=== PATIENT | male | born 1985 | race Caucasian/White ===

== ENCOUNTER 2023-08-07 22:52 | Emergency (ER) | payer OTHER, SELFPAY ==
[2023-08-07 22:54] VITALS: BP 159/96; PULSE 84; RESP 16; TEMP 36.8; O2SAT 97; BMI 38.7
--- NOTE | 2023-08-07 23:00 | EDS_ITS ---
HPI History of Present Illness Chief Complaint: Dental Detail of Chief Complaint: Dental pain due to dental abscess Informant: patient Onset/Context/Timing Onset: Days Context: Sudden Onset Timing: Continuous Quality: Pain Location: Tooth #31 Current Severity: Mild Maximum Severity: Moderate Worsened by: Chewing Relieved by: - (Dentist did not prescribe any medication for pain.) Associated Symptoms Assocated Symptom - Dental: jaw swelling; Negative for fever or face swelling Narrative Narrative: Patient is a 38-year-old male. He presents with dental pain. He was seen by dentist today. Was placed on clindamycin because of allergy to amoxicillin. He has no history medic fever, heart murmur mitral valve prolapse. He denies rash. Denies myalgias arthralgias. He denies difficulty swallowing or change in voice. He has no allergies to pain medicine. Prior similar symptoms: No Recent Illness/Hospitalization: Yes PFSH PFSH Home Medications ?Medication ?Instructions ?Recorded ?Last Taken ?Type clindamycin HCl 150 mg capsule 150 mg PO TID 08/07/23 Unknown History hydrocodone-acetaminophen 5-325mg 1 tab PO Q6H PRN PRN Pain 3 days 08/07/23 Unknown Rx 5mg-325mg #10 TABLETS Allergy/AdvReac Type Severity Reaction Status Date / Time amoxicillin Allergy Mild Rash Verified 08/07/23 22:56 Surgical History History of root canal procedure Hx of wisdom tooth extraction Social History Smoking Status: Never smoker ROS ROS ED Constitutional Constitutional ED: Denies chills, fever(s) or subjective Eyes Eyes: Denies blurry vision or change in vision ENT ENT ED: Reports other Details: Dental pain and swelling proximity of tooth #31 ; Denies ear pain, rhinorrhea or sore throat Cardiovascular Cardiovascular: Reports chest pain, palpitations and racing heartbeat Integumentary Reports abscess; Denies rash Neurologic Neurologic: Denies headache(s) EXAM Physical Exam Const Vital Signs: 08/07/23 22:54 08/07/23 23:32 Temperature 98.2 F 98.2 F Temperature Source Temporal Pulse Rate 84 75 Respiratory Rate 16 18 Blood Pressure 159/96 H 132/88 H Blood Pressure Mean 117 102 Pulse Ox 97 96 Oxygen Delivery Method Room Air Positive well nourished and well developed Constitutional Narrative: Patient has swelling of body of the mandible on the right. Patient has poor dentition. General Appearance ED: well developed and NAD HEENT Face and Sinus: Negative for sinuses nontender Mouth ED: Yes oral and palatal mucosa normal, Yes lips normal, Yes tongue normal, Yes salivary gland normal, No mouth trauma and Yes oral and palatal mucosa abnormal Mouth: oral and palatal mucosa normal, lips normal, tongue normal, salivary gland normal, No mouth trauma and oral and palatal mucosa abnormal Teeth and Gingiva: abnormal tooth and associated gingiva and caries Throat: posterior oropharynx normal Eyes PERRL and EOMs intact bilaterally Neck no lymphadenopathy, supple and no JVD Neck Narrative: Trachea midline. No inspiratory stridor. Floor the mouth is not swollen to suggest Ludewig's angina. Resp normal respiratory effort Cardio regular rate, regular rhythm, S1 normal heart sound, S2 normal heart sound and no murmurs Neuro oriented x3 and CN's II-XII intact bilaterally Sensorium / Orientation: alert Psych mental status grossly normal Skin no rashes or lesions noted and no wounds MDM MDM MDM Narrative Medical decision making narrative: Patient has abscess on dental film tooth #31. Will treat with opiate analgesics he has no contraindication and NSAIDs are not helpful. Discharge Plan Triage Chief Complaint: Dental ED Provider: Juan Avalos Dx/Rx/DC Orders Clinical Impression: Abscess, dental Instructions: ED Dental Abscess Prescriptions: New hydrocodone-acetaminophen 5-325 mg tablet 1 tab PO Q6H PRN PRN (Reason: Pain) 3 Days Qty: 10 0RF No Action clindamycin HCl 150 mg capsule 150 mg PO TID Primary Care Provider: Will Jesus Referrals: Dentist,Your [STAFF PHYSICIAN] - Keep Kati appointment Print Language: Luxembourger Disposition Disposition: Home, Self Care Discharge Date/Time: 08/07/23 23:42
[2023-08-07 23:32] VITALS: BP 132/88; PULSE 75; RESP 18; TEMP 36.8; O2SAT 96
== END 2023-08-07 23:42 | disposition home or self-care (01) ==
PROVIDERS: Emergency Provider Emergency Medicine; PCP Family Medicine; Visit Provider Emergency Medicine
DX: K04.7 Periapical abscess without sinus (principal); R07.9 Chest pain, unspecified; R00.2 Palpitations
CPT/HCPCS: 99282